=== PATIENT | female | born 1980 | race Caucasian/White ===

== ENCOUNTER 2016-09-16 22:33 | Emergency (ER) | payer BC, OTHER ==
[~2016-09-16] VITALS: Ht 165.1 cm; Wt 84.7 kg
[~2016-09-16 22:33] MED LIST: ALEVE220 MG PO; FIORICET,ESG1 TABLET PO; MOTRIN800 MG PO; OMEPRAZOLE40 M1 PO; PREDNISONE20 MG PO; REGLAN10 MG PO; SETLAKIN 0.151 EACH PO
[2016-09-17] MEDS ORDERED: FIORICET WI1 CAPSULE PO (00:44)
[2016-09-17 01:28] VITALS: BP 115/59
== END 2016-09-17 01:29 | disposition home or self-care (01) ==
LOC: RME 22:33 → EME 22:33 → RME 09-17 01:29
DX: G43.909 Migraine, unspecified, not intractable, without status migrainosus (principal)
CPT/HCPCS: 99281; 99284; J1200; J1885; J2270; J2765; J7030

== ENCOUNTER 2017-03-25 00:18 | Emergency (ER) | payer BC, OTHER ==
[~2017-03-25] VITALS: Ht 165.1 cm; Wt 79.5 kg
[~2017-03-25 00:18] MED LIST changes: +FIORICET WI1 CAPSULE PO
[2017-03-25 02:51] VITALS: BP 101/66
== END 2017-03-25 02:51 | disposition home or self-care (01) ==
LOC: EME 00:18
DX: G43.909 Migraine, unspecified, not intractable, without status migrainosus (principal); R11.0 Nausea; J45.909 Unspecified asthma, uncomplicated; J30.9 Allergic rhinitis, unspecified; Z87.891 Personal history of nicotine dependence
CPT/HCPCS: 99281; 99285; J0780; J1100; J1200; J1885; J7030

== ENCOUNTER 2018-01-24 21:57 | Emergency (ER) | payer OTHER ==
[~2018-01-24] VITALS: Ht 165.1 cm; Wt 70.0 kg
[2018-01-24 22:52] LABS: BASOPHIL (%) 0.4 % (0-1); BASOPHIL COUNT 0.1 K/uL (0-0.1); EOSINOPHIL (%) 1.1 % (0-5); EOSINOPHIL COUNT 0.2 K/uL (0-0.3); HEMATOCRIT 41.8 % (36.0-46.0); HEMOGLOBIN 14.6 G/DL (11.9-15.5); IMMATURE GRANULOCYTE (%) 0.8 % (0.0-0.7); LYMPHOCYTE COUNT 2.6 K/uL (1.0-2.8); MCH 31.9 PG (29.0-34.0); MCHC 34.9 G/DL (30.0-36.0); MCV 91.3 FL (83-99); MONOCYTE (%) 5.4 % (3-12); MONOCYTE COUNT 0.9 K/uL (0-0.8); NEUTROPHIL (%) 76.3 % (45-76); NEUTROPHIL COUNT 12.5 K/uL (1.8-6.4); PLATELET COUNT 268 K/uL (156-360); RBC DIS.WIDTH-CV 12.6 % (11.8-14.6); RBC DIS.WIDTH-SD 41.6 % (39-53); RED BLOOD COUNT 4.58 M/uL (3.80-5.20); WHITE BLOOD COUNT 16.3 K/uL (4.1-10.2)
[2018-01-24 23:26] LABS: CHLORIDE 109 MEQ/L (99-109); CREATININE 0.8 MG/DL (0.6-1.3); GFR ESTIMATE (CALCULATED) > 59 mL/min/; GLUCOSE 97 mg/dL (70-99); POTASSIUM 3.9 MEQ/L (3.7-5.4); SODIUM 140 MEQ/L (136-147); UREA NITROGEN (BUN) 12 mg/dL (9-23)
[2018-01-25 03:13] LABS: APPEARANCE CLEAR ((CLEAR)); BILIRUBIN NEGATIVE; BLOOD NEGATIVE; COLOR STRAW ((YELLOW)); GLUCOSE (STRIP) NEGATIVE; KETONES NEGATIVE; LEUKOCYTES NEGATIVE; NITRITE NEGATIVE; PROTEIN (STRIP) NEGATIVE; SPECIFIC GRAVITY 1.003 (1.000-1.030); UCUL ADDED? NO; UROBILINOGEN 0.2 MG/DL (0.2-1.0)
[2018-01-25] MEDS ORDERED: PERCOCET 5/31 TABLET PO (04:03)
[2018-01-25] MEDS ORDERED: IBUPROFEN600 MG PO (04:03)
[2018-01-25] MEDS ORDERED: VICODIN 5-3001 EACH PO (04:12)
[2018-01-25 04:34] VITALS: BP 110/80
== END 2018-01-25 04:43 | disposition home or self-care (01) ==
LOC: EME 21:57
PROVIDERS: Emergency Medicine
DX: S32.10XA Unspecified fracture of sacrum, initial encounter for closed fracture (principal); S30.0XXA Contusion of lower back and pelvis, initial encounter; R20.0 Anesthesia of skin; R10.2 Pelvic and perineal pain; W10.9XXA Fall (on) (from) unspecified stairs and steps, initial encounter; M51.36 Other intervertebral disc degeneration, lumbar region; Z86.73 Personal history of transient ischemic attack (TIA), and cerebral infarction without residual deficits; Z87.891 Personal history of nicotine dependence
CPT/HCPCS: 72132; 72148; 80048; 81003; 85025; 99281; 99285; J1885; J2270; J3010